=== PATIENT | male | born 1985 | race Two or more races ===

== ENCOUNTER 2021-03-22 00:05 | Emergency (ER) | payer OTHER ==
[~2021-03-22] VITALS: Ht 188 cm; Wt 108.9 kg
[2021-03-22] MEDS ORDERED: IV NS 0.9% 1,000 ML IV ONE (00:30)
[2021-03-22] MEDS ORDERED: LORAZEPAM INJ 2 MG/ML VIAL IV ONE (00:30)
[2021-03-22] MEDS ORDERED: LORAZEPAM INJ 2 MG/ML VIAL ONE (00:31)
--- NOTE | 2021-03-22 00:40 | NUR ---
Patient is Alert and Oriented x4. Patient is not slurring words. Patient ambulatory with a steady gait. Patient is not in any distress. Patient is connected to the monitor. Patient has an IV established by [facility] on left AC 18g.
--- NOTE | 2021-03-22 00:42 | NUR ---
PATIENT TAKEN TO CT VIA [facility]
--- NOTE | 2021-03-22 01:37 | NUR ---
Patient discharged to home in stable condition. Written and verbal after care instructions given. Patient verbalizes understanding of instruction.
--- NOTE | 2021-03-22 01:37 | NUR ---
Patient is picked up by friend [place].
--- NOTE | 2021-03-22 01:37 | NUR ---
IV removed. Catheter intact and site benign. Pressure and 4x4 applied to site. No bleeding noted.
--- NOTE | 2021-03-22 01:37 | NUR ---
Patient is ambulatory with a steady gait.
[2021-03-22 01:40] VITALS: BP 124/68
== END 2021-03-22 01:42 | disposition home or self-care (01) ==
LOC: ER 00:08
DX: S00.81XA Abrasion of other part of head, initial encounter (principal); F10.129 Alcohol abuse with intoxication, unspecified; R51.9 Headache, unspecified; E11.9 Type 2 diabetes mellitus without complications; F17.200 Nicotine dependence, unspecified, uncomplicated; R00.0 Tachycardia, unspecified; Y90.9 Presence of alcohol in blood, level not specified; Z60.2 Problems related to living alone; Y08.89XA Assault by other specified means, initial encounter; Y93.89 Activity, other specified; Y92.89 Other specified places as the place of occurrence of the external cause; Y99.8 Other external cause status
CPT/HCPCS: 70450; 72125; 96361; 96374; 99285; J2060; J7030